=== PATIENT | male | born 1965 | race African-American/Black ===

== ENCOUNTER 2017-10-10 06:49 | Inpatient (IN) | payer OTHER ==
[~2017-10-10] VITALS: Ht 188 cm; Wt 107.3 kg
--- NOTE | 2017-10-10 07:41 | ED CARDIAC/CP/PALPITATIONS ---
History of Present Illness General Chief Complaint: Chest Pain Stated Complaint: CHEST PAIN Source: patient Exam Limitations: no limitations Vital Signs & Intake/Output Vital Signs & Intake/Output Vital Signs Date Time Temp Pulse Resp B/P B/P Pulse O2 O2 Flow FiO2 Mean Ox Delivery Rate 10/10 0845 97.8 57 20 122/75 99 Room Air 10/10 0827 98.0 10/10 0813 58 134/81 10/10 0800 98.0 10/10 0658 98.0 66 20 143/79 99 Allergies Coded Allergies: No Known Allergies (10/10/17) Reconcile Medications Aspirin (Ecotrin*) 81 MG TABLET.DR 1 TAB PO DAILY HEART HEALTH (Reported) Cholecalciferol (Vitamin D3) 1,000 UNIT TABLET 1 TAB PO DAILY VITAMIN SUPPORT (Reported) Verapamil HCl (Verapamil ER) 180 MG TABLET.ER 1 TAB PO DAILY HEART (Reported) Triage Note: PER PT 30 MINUTES OF MIDSTERNAL CP NO ASSOC SOB SL PAIN TO NECK HX OF HTN6/10 ON SCALE Triage Nurses Notes Reviewed? yes HPI: Patient was sitting in his truck about to go to work when he had a sudden onset of substernal chest pain. Patient states that it feels like he got punched in the chest and kind has had residual ache. Patient states that the pain transiently radiated up to his neck but then that went away after a few seconds over the chest pain continued. He did get very sweaty and nauseous and both of those have resolved. The chest pain is getting better but it is not gone entirely. Patient has never had anything like this before. Patient does have a significant family history of cardiac disease at an early age. His father had his first heart attack at the age of 42 and the patient's brother as well as his nephew who are both had heart attacks. At its worst the pain was a 7 out of 10 and is currently a 4 out of 10. There are no aggravating or mitigating factors. Past History Travel History Traveled to [place] past 21 day No Medical History Any Pertinent Medical History? see below for history Neurological: NONE EENT: NONE Cardiovascular: hypertension Respiratory: NONE Gastrointestinal: NONE Hepatic: NONE Renal: NONE Musculoskeletal: NONE Psychiatric: NONE Endocrine: NONE Surgical History Surgical History: non-contributory Psychosocial History What is your primary language Thai Tobacco Use: Never used ETOH Use: occasional use Illicit Drug Use: denies illicit drug use Family History Hx Contributory? No Review of Systems Review of Systems Constitutional: Reports: no symptoms. EENTM: Reports: no symptoms. Respiratory: Reports: see HPI, short of breath. Cardiovascular: Reports: see HPI, chest pain. GI: Reports: see HPI, nausea. Genitourinary: Reports: no symptoms. Musculoskeletal: Reports: no symptoms. Skin: Reports: no symptoms. Neurological/Psychological: Reports: no symptoms. Hematologic/Endocrine: Reports: no symptoms. Immunologic/Allergic: Reports: no symptoms. All Other Systems: Reviewed and Negative Physical Exam Physical Exam General Appearance: well developed/nourished, alert, awake, anxious Head: atraumatic, normal appearance Eyes: Bilateral: PERRL, EOMI. Ears, Nose, Throat: normal pharynx, normal ENT inspection, hearing grossly normal Neck: normal inspection, supple, full range of motion Respiratory: normal breath sounds, chest non-tender, no respiratory distress, lungs clear Cardiovascular: regular rate/rhythm, normal peripheral pulses Gastrointestinal: normal bowel sounds, soft, non-tender, no organomegaly Back: normal inspection, normal range of motion Extremities: normal inspection, normal capillary refill, normal range of motion, no edema Neurologic/Psych: no motor/sensory deficits, awake, alert, oriented x 3, normal gait, normal mood/affect Skin: intact, normal color, warm/dry Lymphatic: no anterior cervical nasrin Core Measures ACS in differential dx? Yes CVA/TIA Diagnosis No Sepsis Present: No Sepsis Focused Exam Completed? No Progress Differential Diagnosis: AMI, cholecystitis, costochondritis, musculoskeletal pain, myocarditis, pancreatitis, pericarditis, pneumonia, pneumothorax, pulmonary embolism, unstable angina Plan of Care: Orders Procedure Date/time Status Heart Healthy Diet 10/10 L Active ED Holding Orders 10/10 0834 Active Admit to inpatient 10/10 0834 Active Vital Signs 10/10 0834 Active Code Status 10/10 0834 Active TROPONIN LEVEL 10/10 0657 Complete LIPASE 10/10 0657 Complete HEPATIC FUNCTION PANEL 10/10 0657 Complete D-DIMER 10/10 0657 Complete CBC WITHOUT DIFFERENTIAL 10/10 0657 Complete BASIC METABOLIC PANEL 10/10 0657 Complete AMYLASE 10/10 0657 Complete EKG 10/10 0650 Active Laboratory Tests 10/10/17 0711: Anion Gap 10, Estimated GFR > 60, BUN/Creatinine Ratio 19.1, Glucose 102 H, Calcium 9.1, Total Bilirubin 0.2, Direct Bilirubin 0.2, AST 21, ALT 25, Alkaline Phosphatase 64, Troponin I < 0.01, Total Protein 6.4, Albumin 3.5, Amylase 61, Lipase 114, D-Dimer High Sensitivty < 200, CBC w Diff NO MAN DIFF REQ, RBC 4.84, MCV 82.6, MCH 27.9, MCHC 33.8, RDW 14.8 H, MPV 8.2, Gran % 54.6, Lymphocytes % 32.3, Monocytes % 10.0 H, Eosinophils % 2.6, Basophils % 0.5, Absolute Granulocytes 3.0, Absolute Lymphocytes 1.8, Absolute Monocytes 0.6, Absolute Eosinophils 0.1, Absolute Basophils 0 Diagnostic Imaging: Viewed by Me: Radiology Read. Discussed w/RAD: Radiology Read. CXR Impression: PATIENT: JENNIE BLAS PRESENT AGE: 52 PATIENT ACCOUNT NO: [id number] : 67 LOCATION: [facility] ORDERING PHYSICIAN: Andrwe Farfan MD SERVICE DATE: 10/10/17 EXAM TYPE: RAD - XRY- PORTABLE CHEST XRAY EXAMINATION: XR PORTABLE CHEST CLINICAL INFORMATION: Chest pain. COMPARISON: No relevant prior imaging. TECHNIQUE: Portable frontal view of the chest was obtained. FINDINGS: Lungs are clear and well expanded. No focal consolidative disease, pleural effusion, or pneumothorax. The cardiac silhouette and upper mediastinal contours are normal. No acute osseous finding. IMPRESSION: Unremarkable chest radiograph. No consolidative disease or effusion. DICTATED BY : Sunday Riggs MD DATE/TIME DICTATED:10/10/17747 FURNACE FILLER: MIKKI DATE/TIME TRANSCRIBED:10/10/17747 CONFIDENTIAL, DO NOT COPY WITHOUT APPROPRIATE AUTHORIZATION. <Electronically signed in Other Vendor System> SIGNED BY: Sunday Riggs MD 10/10/17 9142 Initial ED EKG: SR WITH NSSTT CHANGES,NO OLD TO COMPARE Comments: PAIN RELIEVED AFTER SECOND NITRO Discussed with Dr. Wiggins, given the patient's family history and relief with nitroglycerin it is advised that the patient stay in the hospital for further cardiology workup. Departure Departure Disposition: STILL A PATIENT Condition: Stable Clinical Impression Primary Impression: ACS (acute coronary syndrome) Referrals: Unknown (PCP/Family) Departure Forms: Customer Survey General Discharge Information Admission Note Spoke With: Jag Patel MD Documentation of Exam: Documentation of any treatments & extenuating circumstances including Concerns Regarding Discharge (functional status, medication knowledge or non-compliance, living conditions, etc.) that warrant an admission rather than observation: [ ADMIT TO TELE, SERIAL ENZYMES, CARDIOLOGY CONSULTATION, STESS TEST] Critical Care Note Critical Care Note Critical Care Time: non-applicable
[2017-10-10 07:46] LABS: ABSOLUTE BASOPHIL COUNT 0 /CUMM (0.0-0.2); ABSOLUTE EOSINOPHIL COUNT 0.1 /CUMM (0.0-0.7); ABSOLUTE LYMPH COUNT 1.8 /CUMM (1.2-3.4); ABSOLUTE MONOCYTE COUNT 0.6 /CUMM (0.10-0.60); BASOPHIL % 0.5 % (0.0-2.0); EOSINOPHIL % 2.6 % (0-5); GRANULOCYTE % 54.6 % (42.2-75.2); MEAN CORPUSCULAR HGB 27.9 PG (27.0-31.0); MEAN CORPUSCULAR HGB CONC 33.8 G/DL (33.0-37.0); MEAN CORPUSCULAR VOLUME 82.6 FL (80.0-94.0); MEAN PLATELET VOLUME 8.2 FL (7.4-10.4); PLATELET COUNT 249 /CUMM (130-400); RBC DISTRIBUTION WIDTH 14.8 % (11.5-14.5); RED BLOOD CELL CT 4.84 /CUMM (4.70-6.10); WHITE BLOOD CELL COUNT 5.5 /CUMM (4.8-10.8)
--- NOTE | 2017-10-10 07:52 | RADIOLOGY REPORT ---
EXAMINATION: XR PORTABLE CHEST CLINICAL INFORMATION: Chest pain. COMPARISON: No relevant prior imaging. TECHNIQUE: Portable frontal view of the chest was obtained. FINDINGS: Lungs are clear and well expanded. No focal consolidative disease, pleural effusion, or pneumothorax. The cardiac silhouette and upper mediastinal contours are normal. No acute osseous finding. IMPRESSION: Unremarkable chest radiograph. No consolidative disease or effusion.
[2017-10-10] MEDS ORDERED: VERAPAMIL ER180 M1 PO (08:05)
[2017-10-10] MEDS ORDERED: VITAMIN D31000 UNI2 PO (08:06)
[2017-10-10] MEDS ORDERED: ASPIRIN EC81 M1 PO (08:06)
--- NOTE | 2017-10-10 09:19 | History & Physical ---
Lizz Vasquez MD 10/10/17 0919: General Information and HPI MD Statement: I have seen and personally examined JENNIE BLAS and documented this H&P. The patient is a 52 year old M who presented with a patient stated chief complaint of [CHEST PAIN]. Source of Information: patient Exam Limitations: no limitations History of Present Illness: Patient is a 52 YO M with PMH significant for HTN, headache presented to [place] after experiencing chest pain at rest today morning. Chest pain is stabbing in nature, substernal radiating to neck, with nausea and diaphoresis. Pain relieved with oral nitroglycerine. He denies any precipitating events prior to this episode, usually functional at baseline. 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 He reports headache every other day with dizziness. Never checks his blood pressure at home, unsure how well it is controlled. Otherwise negative review of systems. Admitted with chest pain last yr, had a normal stress test during that admission. PMH HTN - 2yrs, on verapamil Headache NKDA Meds Verapamil 180mg daily aspirin 81mg daily Family history Mother - stroke father - MT, PPM started around 50's Brother - MT in 30's Surgical None PCP - Dr.Charles araujo -- [facility] Allergies/Medications Allergies: Coded Allergies: No Known Allergies (10/10/17) Home Med list Aspirin (Ecotrin*) 81 MG TABLET.DR 1 TAB PO DAILY HEART HEALTH (Reported) Cholecalciferol (Vitamin D3) 1,000 UNIT TABLET 1 TAB PO DAILY VITAMIN SUPPORT (Reported) Verapamil HCl (Verapamil ER) 180 MG TABLET.ER 1 TAB PO DAILY HEART (Reported) Compliance With Home Meds: GOOD Past History Travel History Traveled to [place] past 21 day No Medical History Neurological: NONE EENT: NONE Cardiovascular: hypertension Respiratory: NONE Gastrointestinal: NONE Hepatic: NONE Renal: NONE Musculoskeletal: NONE Psychiatric: NONE Endocrine: NONE Surgical History Surgical History: non-contributory Past Family/Social History Family History Relations & Conditions if any MOTHER FH: stroke FATHER FH: myocardial infarction, Onset: 50-60. Pacemaker BROTHER FH: myocardial infarction, Onset: 30-40. Psychosocial History Where do you live? Home Who Do You Live With? none Services at Home: None Smoking Status: Never Smoked ETOH Use: occasional use Illicit Drug Use: denies illicit drug use Functional Ability ADLs Independent: dressing, eating, toileting, bathing. Ambulation: independent IADLs Independent: shopping, housework, finances, food prep, telephone, transportation , medication admin. Review of Systems Review of Systems Constitutional: Reports: see HPI. Exam & Diagnostic Data Last 24 Hrs of Vital Signs/I&O Vital Signs Date Time Temp Pulse Resp B/P B/P Pulse O2 O2 Flow FiO2 Mean Ox Delivery Rate 10/10 0845 97.8 57 20 122/75 99 Room Air 10/10 0827 98.0 10/10 0813 58 134/81 10/10 08 98.0 10/10 0658 98.0 66 20 143/79 99 Intake & Output 10/10 1600 10/10 0800 10/10 0000 Intake Total 0 Output Total Balance 0 Intake, Oral 0 Patient 104.326 kg Weight Physical Exam General Appearance Alert, Oriented X3, Cooperative Skin No Rashes, No Breakdown Skin Temp/Moisture Exam: Warm/Dry Sepsis Skin Exam (color): Normal for Ethnicity HEENT Atraumatic, PERRLA, EOMI Neck Supple, No JVD Cardiovascular Normal S1, Normal S2 Lungs Clear to Auscultation, Normal Air Movement Abdomen Normal Bowel Sounds, Soft, No Tenderness Neurological Strength at 5/5 X4 Ext, Normal Tone, Sensation Intact Extremities No Clubbing, No Cyanosis, No Edema Vascular Normal Pulses Last 24 Hrs of Labs/Pranav: Laboratory Tests 10/10/17 0711: Anion Gap 10, Estimated GFR > 60, BUN/Creatinine Ratio 19.1, Glucose 102 H, Calcium 9.1, Total Bilirubin 0.2, Direct Bilirubin 0.2, AST 21, ALT 25, Alkaline Phosphatase 64, Troponin I < 0.01, Total Protein 6.4, Albumin 3.5, Amylase 61, Lipase 114, D-Dimer High Sensitivty < 200, CBC w Diff NO MAN DIFF REQ, RBC 4.84, MCV 82.6, MCH 27.9, MCHC 33.8, RDW 14.8 H, MPV 8.2, Gran % 54.6, Lymphocytes % 32.3, Monocytes % 10.0 H, Eosinophils % 2.6, Basophils % 0.5, Absolute Granulocytes 3.0, Absolute Lymphocytes 1.8, Absolute Monocytes 0.6, Absolute Eosinophils 0.1, Absolute Basophils 0 Diagnostic Data EKG Results NSR with nonspecific EKG changes in II, III, aVF, V5, V6 Assessment/Plan Assessment: Patient is a 52 YO male with HTN, previous chest apain with normal stress test a yr ago presented with stabbing substernal chest pain with nausea, diaphoresis at rest. He had strong family history of MT in father, brother at younger age (<55yr), no smoking/alcohol. VS at presentation are significant for HR 50-60, BP 140/75mmHg, saturating on RA. Physical exam obese, otherwise unremarkable. Labs are unremarkable (mild elevation in sugars). cxr unremarkable. Differentials Cardiac chest pain - Unstable angina vs ACS No history of GERD/recent viral infection Problem list 1. Chest pain - ischemic - rule out MT 2. HTN 3. Headache Plan Admit to telemetry floor Chest pain H/o HTN on verapamil. strong family history of MT in 50's, bother in 30's. previous similar episode with normal stress test. * aspirin 325mg in ER, continue aspirin 81mg daily * Atrovastatin 40mg, continue verapamil * echocardiogram * Serial ekg and trop - if elevated consider iv heparin * consulted * Will try to obtain records HTN Needs changes in regimen, on verapamil. we will continue for now Headache Appears cluster headache. Reports every other day, lasts only few seconds. Associated with dizziness. On verapamil apparently. DVT prophylaxis SC heparin Code status Full code As Ranked By This Provider Problem List: 1. ACS (acute coronary syndrome) 2. Chest pain Core Measures/Misc (01/09) Acute Coronary Syndrome ACS Diagnosis: No Congestive Heart Failure Congestive Heart Failure Diagnosis No Cerebrovascular Accident CVA/TIA Diagnosis: No VTE (View Protocol) VTE Risk Factors Acute Medical Illness No Mechanical VTE Prophylaxis d/t N/A MechProphylax Ordered No VTE Pharm Prophylaxis d/t NA PharmProphylax ordered Sepsis (View protocol) Sepsis Present: No If YES complete Sepsis Event Note If YES complete Sepsis Event Note Resident Review Statement Resident Statement: examined this patient, discussed with wedding planning internship, agreed with wedding planning internship, discussed with family, reviewed EMR data (avail), discussed with nursing , discussed with case mgmt, reviewed images, amended to note Other Findings: As above Suleiman Jimenez 10/10/17 1031: Core Measures/Misc (01/09) Sepsis (View protocol) If YES complete Sepsis Event Note If YES complete Sepsis Event Note Attending MD Review Statement Attending Statement Attending MD Statement: examined this patient, discuss w/resident/PA/CAT OPERATOR, agreed w/resident/PA/CAT OPERATOR, discussed with family, reviewed EMR data (avail), discussed with nursing, discussed with case mgmt, reviewed images, amended to note Attending Assessment/Plan: Patient here with chest pain syndrome to telemetry. Cardiology consult. serial cardiac enzymes and ekgs. ECHO as per cardiology. Hypertension and headaches controlled on verapamil. Cont current regimen.
--- NOTE | 2017-10-10 11:29 | ECHOCARDIOGRAM REPORT ---
JENNIE BLAS Age: 52 : 1965 Gender: M Exam Date: 10/10/2017 10:08 Exam Location: ER Ht (in): 74 Wt (lb): 230 BSA: 2.35 BP: 122 / 75 Ordering Physician: Lizz Vasquez MD Referring Physician: Lizz Vasquez MD Technologist: Kamron Jeter [facility] Room Number: 7 Indications: LV FUNCTION AFTER ACS Rhythm: Sinus Technical Quality: good FINDINGS Left Ventricle Normal left ventricular size, wall thickness and systolic function with no obvious regional wall motion abnormalities. Normal left ventricular diastolic filling pattern for age. The ejection fraction is visually estimated at 60%. Right Ventricle The right ventricle is normal in size and function. Right Atrium The right atrium is normal in size. Left Atrium The left atrium is normal in size. The interatrial septum is intact. Mitral Valve The mitral valve is normal in structure and function. There is trace mitral regurgitation. Aortic Valve Structurally normal aortic valve without significant sclerosis or stenosis. There is no aortic regurgitation. Tricuspid Valve The tricuspid valve is normal in structure and function. There is no tricuspid regurgitation. Pulmonic Valve Structurally normal pulmonic valve. There is no pulmonic regurgitation. Pericardium Normal pericardium without effusion. No pleural effusion. Great Vessels Normal aortic root dimension. The aortic arch and great vessels are well seen and are normal. CONCLUSIONS 1. Normal EF of 60%. 2. Trace mitral regurgitation. Wood Wiggins M.D. (Electronically Signed) Final Date: 10 October 2017 11:29 MEASUREMENTS (Male / Female) Normal Values 2D ECHO LV Diastolic Diameter PLAX 5.6 cm 4.2 - 5.9 / 3.9 - 5.3 cm LV Systolic Diameter PLAX 3.1 cm 2.1 - 4.0 cm LV Fractional Shortening PLAX 44.6 % 25 - 46 % LV Ejection Fraction 2D Teich 75.3 % IVS Diastolic Thickness 0.8 cm LVPW Diastolic Thickness 0.9 cm LV Relative Wall Thickness 0.3 RV Internal Dim ED PLAX 2.9 cm 1.9 - 3.8 cm LVOT Diameter 2.1 cm Aortic Root Diameter 3.1 cm LA Systolic Diameter LX 3.2 cm 3.0 - 4.0 / 2.7 - 3.8 cm LA Volume 51.0 cm 18 - 58 / 22 - 52 cm Ascending Aorta Diameter 3.2 cm DOPPLER AV Peak Velocity 121.0 cm/s AV Peak Gradient 5.9 mmHg AV Mean Velocity 88.6 cm/s AV Mean Gradient 3.0 mmHg AV Velocity Time Integral 31.8 cm LVOT Peak Velocity 91.0 cm/s LVOT Peak Gradient 3.3 mmHg LVOT Mean Velocity 53.8 cm/s LVOT Mean Gradient 1.0 mmHg LVOT Velocity Time Integral 19.5 cm LVOT Stroke Volume 67.5 cm AV Area Cont Eq vti 2.1 cm AV Area Cont Eq pk 2.6 cm MV Peak Velocity 88.2 cm/s MV Peak Gradient 3.1 mmHg MV Mean Velocity 40.5 cm/s MV Mean Gradient 1.0 mmHg Mitral E Point Velocity 71.1 cm/s Mitral A Point Velocity 37.5 cm/s Mitral E to A Ratio 1.9 MV PHT Velocity 102.0 cm/s MV Deceleration [place] 444.0 cm/s MV Pressure Half Time 68.9 ms MV Area PHT 3.2 cm MV Deceleration Time 232.0 ms PV Peak Velocity 91.0 cm/s PV Peak Gradient 3.3 mmHg PV Mean Velocity 62.7 cm/s PV Mean Gradient 2.0 mmHg PV Velocity Time Integral 23.6 cm LV E' Lateral Velocity 13.7 cm/s Mitral E to LV E' Lateral Ratio 5.2 LV E' Septal Velocity 10.6 cm/s Mitral E to LV E' Septal Ratio 6.7
[2017-10-10 12:55] VITALS: BP 138/82
[2017-10-10 15:22] VITALS: BP 122/86
[2017-10-10 16:22] LABS: PT 11.4 SEC (9.4-12.5)
--- NOTE | 2017-10-10 17:06 | Cons- Cardiology ---
General Information and HPI Consulting Request Date of Consult: 10/10/17 Requested By: Suleiman Jimenez MD History of Present Illness: Mr Adams is a 52 year old male with history of hypertension who presented to the ER for evaluation of chest discomfort. At his baseline, he is mild to moderately active but does not engage in vigorous exercise. This morning, prior to beginning to work, he suddenly noted the onset of a moderate, chest pressure radiating toward his left neck that was exacerbated by physical exertion. It was relieved about ten minutes later in the ER after he received two sublingual NTG. The discomfort was associated with nausea and diaphoresis. He also had some transient lightheadedness but no palpitations. His breathing also remained comfortable. It should be noted that this patient also had an episode of chest discomfort about a year ago while living in [place] and a subsequent stress test was negative for ischemia at that time. Allergies/Medications Allergies: Coded Allergies: No Known Allergies (10/10/17) Home Med List: Aspirin (Ecotrin*) 81 MG TABLET.DR 1 TAB PO DAILY HEART HEALTH (Reported) Cholecalciferol (Vitamin D3) 1,000 UNIT TABLET 1 TAB PO DAILY VITAMIN SUPPORT (Reported) Verapamil HCl (Verapamil ER) 180 MG TABLET.ER 1 TAB PO DAILY HEART (Reported) Review of Systems Review of Systems: headaches Past History Travel History Traveled to [place] past 21 day No Medical History Blood Transfusion Hx: No Neurological: NONE EENT: NONE Cardiovascular: hypertension Respiratory: NONE Gastrointestinal: NONE Hepatic: NONE Renal: NONE Musculoskeletal: NONE Psychiatric: NONE Endocrine: NONE Blood Disorders: NONE Cancer(s): NONE LENGTH CONTROL TESTER/Reproductive: NONE Other Medical Hx: headaches Surgical History Surgical History: non-contributory Family History Relations & Conditions If Any: MOTHER FH: stroke FATHER FH: myocardial infarction, Onset: 50-60. Pacemaker BROTHER FH: myocardial infarction, Onset: 30-40. Psychosocial History Where Do You Live? Home Who Do You Live With? none Services at Home: None Smoking Status: Never Smoked ETOH Use: occasional use Illicit Drug Use: denies illicit drug use Functional Ability ADLs Independent: dressing, eating, toileting, bathing. Ambulation: independent IADLs Independent: shopping, housework, finances, food prep, telephone, transportation , medication admin. Exam & Diagnostic Data Vital Signs and I&O Vital Signs Date Time Temp Pulse Resp B/P B/P Pulse O2 O2 Flow FiO2 Mean Ox Delivery Rate 10/10 1522 97.9 52 18 122/86 97 Room Air 10/10 1255 97.9 49 18 138/82 99 Room Air 10/10 1147 97.8 52 18 121/72 10/10 1057 97.7 52 18 121/72 98 Room Air 10/10 0845 97.8 57 20 122/75 99 Room Air 10/10 0827 98.0 10/10 0813 58 134/81 10/10 0800 98.0 10/10 0658 98.0 66 20 143/79 99 Intake & Output 10/10 1600 10/10 0800 10/10 0000 10/09 1600 10/09 0800 10/09 0000 Intake Total 0 Output Total 500 Balance -500 0 Intake, Oral 0 Number 0 Bowel Movements Output, Urine 500 Patient 260 lb 230 lb Weight Weight Reported by Patient Measurement Method Physical Exam: General: WD/WN male in NAD; alert and oriented x 3 HEENT: NC/AT, PERRL, EOMI Neck: no JVD, no carotid bruit Heart: RRR w/o murmur Lungs: clear bilaterally Abdomen: soft, NT, +ve bowel sounds Extremities: no edema Diagnostic Data EKG Results sinus rhythm Assessment/Plan Assessment/Plan * This patient has a very disconcerting family history of premature coronary artery disease in both his brother and father. This is in addition to hypertension. The chest discomfort that Mr. Adams describes today does sound reasonable for a cardiac pain in that it radiates toward his neck, was increased by exertion prior to relief by NTG. It was also accompanied by typical symptoms of increased sympathetic response. We will treat this as unstable angina and will begin aspirin 325mg daily, Plavix 75mg daily after a 300mg loading dose and IV heparin. Begin NTG paste if there is any recurrent chest pain. Since his heart rate and bleed pressure are both well controlled on his current dose of Verapamil, I would continue this. Begin supplemental O2 at 2L by NC. * Agree with obtaining an echocardiogram. * Follow for three sets of cardiac enzymes on telemetry. * Will plan on risk stratification with a treadmill nuclear stress test tomorrow. Consult Acknowledgment - Thank you for your consult request.
[2017-10-10 22:19] VITALS: BP 150/78
[2017-10-10 23:30] LABS: PTT 40 SEC (25-37)
--- NOTE | 2017-10-11 07:01 | PN- Housestaff ---
Mike BASS,[facility] 10/11/17 0701: Subjective Follow-up For: Chest Pain Subjective: Mr. Adams was seen and examined this morning. He is resting comfortably in bed. Denies any issues overnight. States he was able to get some rest. States that he feels much better today compared to at the time of admission. 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 Originally from [place]. Overnight no issues were endorsed. He is currently nothing by mouth and is awaiting stress test scheduled for later today. Denies any pain, dyspnea, fever, chills, nausea, vomiting. He denies any headaches. Review of Systems Constitutional: Reports: see HPI. Objective Last 24 Hrs of Vital Signs/I&O Vital Signs Date Time Temp Pulse Resp B/P B/P Pulse O2 O2 Flow FiO2 Mean Ox Delivery Rate 10/11 0705 97.7 60 18 118/80 98 Room Air 10/10 2219 97.8 48 18 150/78 98 Room Air 10/10 1522 97.9 52 18 122/86 97 Room Air 10/10 1255 97.9 49 18 138/82 99 Room Air 10/10 1147 97.8 52 18 121/72 06 1057 97.7 52 18 121/72 98 Room Air 10/10 0845 97.8 57 20 122/75 99 Room Air Intake & Output 10/11 1600 10/11 0800 10/11 0000 Intake Total 274 1080 Output Total Balance 274 1080 Intake, IV 224 Intake, Oral 50 1080 Number 1 Bowel Movements Patient 107.303 kg Weight Weight Bed scale Measurement Method Physical Exam General Appearance: Alert, Oriented X3, Cooperative HEENT: Mucous Membr. moist/pink Cardiovascular: Regular Rate, Normal S1, Normal S2 Lungs: Clear to Auscultation Abdomen: Normal Bowel Sounds, Soft, No Tenderness Neurological: Strength at 5/5 X4 Ext Extremities: No Edema, Normal Pulses Current Medications: Current Medications Sig/Monica Start time Last Medication Dose Route Stop Time Status Admin Aspirin Buffered 81 MG DAILY 10/11 0900 DC PO Aspirin Buffered 325 MG DAILY 10/10 1830 AC PO Atorvastatin Calcium 40 MG 1700 10/10 1700 AC 10/10 PO 1621 Cholecalciferol 1,000 IU DAILY 10/10 0925 AC 10/10 PO 1147 Clopidogrel Bisulfate 75 MG DAILY 10/11 0900 AC PO Clopidogrel Bisulfate 300 MG ONCE ONE 10/10 1545 DC 10/10 PO 10/10 1546 1621 Heparin Sodium 6,400 UNIT ONCE ONE 10/11 0015 DC 10/11 (Porcine) IV 10/11 0016 0013 Heparin Sodium 25,000 UNIT Q24H 10/10 1545 AC 10/10 (Porcine) IV 1659 Sodium Chloride 500 ML Heparin Sodium 5,000 UNIT Q8 10/10 1400 DC (Porcine) SC Nitroglycerin 0.5 GM Q6P PRN 10/10 1030 AC TOP Verapamil HCl 180 MG DAILY 10/10 0925 AC PO Last 24 Hrs of Lab/Pranav Results Last 24 Hrs of Labs/Mics: Laboratory Tests 10/11/17 0606: Anion Gap 9, Estimated GFR > 60, BUN/Creatinine Ratio 16.0, Magnesium 1.8, Triglycerides 52, Cholesterol 130, LDL Cholesterol, Calc 68, HDL Cholesterol 52, Cholesterol/HDL Ratio 3, APTT Pending, CBC w Diff NO MAN DIFF REQ, RBC 5.15, MCV 84.0, MCH 27.5, MCHC 32.7 L, RDW 14.8 H, MPV 8.2, Gran % 54.5, Lymphocytes % 32.9, Monocytes % 8.5, Eosinophils % 3.3, Basophils % 0.8, Absolute Granulocytes 2.9, Absolute Lymphocytes 1.7, Absolute Monocytes 0.4, Absolute Eosinophils 0.2, Absolute Basophils 0 10/10/17 2245: APTT 40 H 10/10/17 1925: Troponin I < 0.01 10/10/17 1300: Urine Color YEL, Urine Clarity CLEAR, Urine pH 6.5, Ur Specific Tina 1.025, Urine Protein NEG, Urine Ketones NEG, Urine Nitrite NEG, Urine Bilirubin NEG, Urine Urobilinogen 0.2, Ur Leukocyte Esterase NEG, Ur Microscopic EXAM NOT REQUIRED, Urine Hemoglobin NEG, Urine Glucose NEG 10/10/17 1251: Troponin I < 0.01 Orders ECHO Findings: SERVICE DATE: 10/10/17 EXAM TYPE: CARD - ECHOCARDIOGRAM JENNIE ADAMS Age: 52 : 1965 Gender: M Exam Date: 10/10/2017 10:08 Exam Location: ER Ht (in): 74 Wt (lb): 230 BSA: 2.35 BP: 122 / 75 Ordering Physician: Lizz Vasquez MD Referring Physician: Lizz Vasquez MD Technologist: Kamron Jeter [facility] Room Number: 7 Indications: LV FUNCTION AFTER ACS Rhythm: Sinus Technical Quality: good FINDINGS Left Ventricle Normal left ventricular size, wall thickness and systolic function with no obvious regional wall motion abnormalities. Normal left ventricular diastolic filling pattern for age. The ejection fraction is visually estimated at 60%. Right Ventricle The right ventricle is normal in size and function. Right Atrium The right atrium is normal in size. Left Atrium The left atrium is normal in size. The interatrial septum is intact. Mitral Valve The mitral valve is normal in structure and function. There is trace mitral regurgitation. Aortic Valve Structurally normal aortic valve without significant sclerosis or stenosis. There is no aortic regurgitation. Tricuspid Valve The tricuspid valve is normal in structure and function. There is no tricuspid regurgitation. Pulmonic Valve Structurally normal pulmonic valve. There is no pulmonic regurgitation. Pericardium Normal pericardium without effusion. No pleural effusion. Great Vessels Normal aortic root dimension. The aortic arch and great vessels are well seen and are normal. CONCLUSIONS 1. Normal EF of 60%. 2. Trace mitral regurgitation. Wood Wiggins M.D. Assessment/Plan Assessment: Mr Adams is a 52 YO male with HTN, previous chest pain with normal stress test a yr ago presented with stabbing substernal chest pain with nausea, diaphoresis at rest. He has a strong family history of CT in father, brother at younger age (<55yr), no smoking/alcohol. VS at presentation are significant for HR 50-60, BP 140/75mmHg, saturating on RA. Chest pain on admission was relieved with NTG. Currently admitted on the telemetry service and had no issues on the monitoring engineer overnight. Differentials Cardiac chest pain - Unstable angina vs ACS No history of GERD/recent viral infection Problem list 1. Chest pain - likely unstable angina 2. HTN 3. Headache Plan Chest pain H/o HTN on verapamil. strong family history of CT in 50's, bother in 30's. previous similar episode with normal stress test. * aspirin 325mg * Atrovastatin 40mg, * Plavix 75mg daily * Continue IV heparin. * continue verapamil * echocardiogram, results attached. HTN Needs changes in regimen, on verapamil. we will continue for now Headache Query Cluster headache. Symptoms well controlled on verapamil. DVT prophylaxis SC heparin Code status Full code Problem List: 1. Chest pain Pain Ratin Pain Location: No Pain Pain Goal: Remain pain free Pain Plan: Acetaminophen and Morphine PRN Tomorrow's Labs & Rationales: No Labs needed, pending discharge. Suleiman Jimenez 10/11/17 1051: Attending MD Review Statement Attending Statement Attending MD Statement: examined this patient, discuss w/resident/PA/SECURITY SYSTEMS INTEGRATOR, agreed w/resident/PA/SECURITY SYSTEMS INTEGRATOR, discussed with family, reviewed EMR data (avail), discussed with nursing, discussed with case mgmt, reviewed images, amended to note Attending Assessment/Plan: Patinet with chest pain syndrome. Cardiac enzymes negative. Plan for stress test today. If stress test negative he can ne discharged to home with outpatient follow up with PCP in 1-2 weeks of discharge.
[2017-10-11 07:05] VITALS: BP 118/80
[2017-10-11 07:47] LABS: ABSOLUTE BASOPHIL COUNT 0 /CUMM (0.0-0.2); ABSOLUTE EOSINOPHIL COUNT 0.2 /CUMM (0.0-0.7); ABSOLUTE GRANULOCYTE CT 2.9 /CUMM (1.4-6.5); ABSOLUTE LYMPH COUNT 1.7 /CUMM (1.2-3.4); ABSOLUTE MONOCYTE COUNT 0.4 /CUMM (0.10-0.60); BASOPHIL % 0.8 % (0.0-2.0); EOSINOPHIL % 3.3 % (0-5); GRANULOCYTE % 54.5 % (42.2-75.2); HEMATOCRIT 43.3 % (42-52); MEAN CORPUSCULAR HGB 27.5 PG (27.0-31.0); MEAN CORPUSCULAR HGB CONC 32.7 G/DL (33.0-37.0); MEAN PLATELET VOLUME 8.2 FL (7.4-10.4); PLATELET COUNT 252 /CUMM (130-400); RBC DISTRIBUTION WIDTH 14.8 % (11.5-14.5); RED BLOOD CELL CT 5.15 /CUMM (4.70-6.10); WHITE BLOOD CELL COUNT 5.2 /CUMM (4.8-10.8)
[2017-10-11 09:02] LABS: PTT > 120 SEC (25-37)
[2017-10-11 14:48] VITALS: BP 130/80
--- NOTE | 2017-10-11 14:49 | Patient Discharge Instructions ---
Discharge Instructions General Discharge Information You were seen/treated for: Chest pain Special Instructions: Please follow up with the PCP within 7 days we have provided you with a referral. Follow up with the sagger soak within 1 week with provided you referral. Acute Coronary Syndrome Inclusion Criteria At DC or during hospital stay patient has or had the following: ACS DIAGNOSIS No Discharge Core Measures Meds if any: Prescribed or Continued at Discharge Meds if any: NOT Prescribed or Continued at Discharge Congestive Heart Failure Inclusion Criteria At DC or during hospital stay patient has or had the following: CHF DIAGNOSIS No Discharge Core Measures Meds if any: Prescribed or Continued at Discharge Meds if any: NOT Prescribed or Continued at Discharge Cerebrovascular accident Inclusion Criteria At DC or during hospital stay patient has or had the following: CVA/TIA Diagnosis No Discharge Core Measures Meds if any: Prescribed or Continued at Discharge Meds if any: NOT Prescribed or Continued at Discharge Venous thromboembolism Inclusion Criteria VTE Diagnosis No VTE Type NONE VTE Confirmed by (Test) NONE Discharge Core Measures - Per Current guidelines, there needs to be overlap - treatment for the first 5 days of Warfarin therapy. - If discharged on Warfarin prior to 5 days of - overlap therapy, the patient will need to be - assessed for post discharge needs including - *Post discharge parental anticoagulation - *Warfarin and/or parental anticoagulation education - *Follow up date to check INR post discharge At least 5 days overlap therapy as Inpatient No Meds if any: Prescribed or Continued at Discharge Note: Overlap Therapy is Warfarin and Anticoagulant Meds if any: NOT Prescribed or Continued at Discharge
[2017-10-11] MEDS ORDERED: ATORVASTATIN CA40 M1 PO ×2 (15:21→18:33)
[2017-10-11] MEDS ORDERED: PLAVIX75 M1 PO ×2 (15:21→18:33)
[2017-10-11] MEDS ORDERED: ASPIRIN EC325 M2 PO (15:21)
--- NOTE | 2017-10-11 16:01 | NUCLEAR MEDICINE REPORT ---
EXERCISE STRESS AND RESTING SPECT MYOCARDIAL PERFUSION IMAGING STUDY WITH GATED SPECT IMAGES: CLINICAL INDICATION: Atypical chest pain. PROCEDURE: Regional myocardial perfusion was assessed using a 1 day protocol. Stress images were obtained on 10/11/2017 following the intravenous administration of 26.5 mCi Tc 99m Myoview. Stress was performed using the standard Chay protocol, with the patient reaching a peak heart rate of 88% maximal predicted heart rate. Rest images were obtained 10/11/2017 following the intravenous administration of 41.4 mCi Technetium 99m Myoview. Single photon emission tomographic (SPECT) images were obtained. SPECT images were acquired in a 64 x 64 matrix of 64 projections over 180 degrees. These were reconstructed into standard short axis, horizontal and vertical long axis cardiac projections. FINDINGS: The post stress images demonstrate the left ventricular chamber to be normal in size. There is homogeneous distribution of activity in the left ventricular myocardium with no regions of abnormally decreased activity noted. The resting images also demonstrate homogeneous distribution of activity in the left ventricular myocardium, and are not significantly changed from the post stress images. The stress images were obtained using a gated SPECT technique, which permits visualization of wall motion and calculation of the left ventricular ejection fraction. No left ventricular wall motion abnormalities are noted on the stress study. The calculated left ventricular ejection fraction is 52% on the stress study. No previous study is available for comparison. IMPRESSION: Normal exercise stress and resting myocardial perfusion study with normal left ventricular wall motion and ejection fraction.
--- NOTE | 2017-10-11 17:47 | PN- Cardiology ---
Subjective Subjective: * No chest discomfort. * Normal troponins. * sinus rhythm Objective Vital Signs and I&Os Vital Signs Date Time Temp Pulse Resp B/P B/P Pulse O2 O2 Flow FiO2 Mean Ox Delivery Rate 10/11 1448 98.6 63 20 130/80 99 Room Air 10/11 0855 64 124/82 10/11 0705 97.7 60 18 118/80 98 Room Air 10/10 2219 97.8 48 18 150/78 98 Room Air Intake & Output 10/11 1600 10/11 0800 10/11 0000 10/10 1600 10/10 0800 10/10 0000 Intake Total 016 104 4630 0 Output Total 500 Balance 807 768 3315 -500 0 Intake, IV 50 224 Intake, Oral 769 77 8207 0 Number 1 0 Bowel Movements Output, Urine 500 Patient 237 lb 260 lb 230 lb Weight Weight Bed scale Reported by Patient Measurement Method Physical Exam: General: WD/WN male in NAD; alert and oriented x 3 HEENT: NC/AT, PERRL, EOMI Neck: no JVD, no carotid bruit Heart: RRR w/o murmur Lungs: clear bilaterally Abdomen: soft, NT, +ve bowel sounds Extremities: no edema Assessment/Plan Assessment/Plan * This patient has a very disconcerting family history of premature coronary artery disease in both his brother and father. This is in addition to hypertension. The chest discomfort that Mr. Adams described yesterday did sound reasonable for a cardiac pain in that it radiated toward his neck, was increased by exertion prior to relief by NTG. It was also accompanied by typical symptoms of increased sympathetic response. Fortunately, his stress test was negative for ischemia and he has a normal EF without regional wall motion abnormalities. I think it is reasonable to discharge this patient on aspirin 162mg daily, Plavix 75mg daily, a NTG patch at 0.2mg/hr for 12 hours daily and Verapamil as currently prescribed. He should follow up in the office in one week and if any recurrent chest pain I would have a low threshold for cardiac catheterization. Continue telemetry? No
[2017-10-11] MEDS ORDERED: DURLAZA162.5 MG PO ×2 (18:05→18:33)
[2017-10-11] MEDS ORDERED: NITROGLYCERIN1 EAC3 PAT ×2 (18:05→18:33)
--- NOTE | 2017-10-12 07:03 | Discharge Summary ---
Visit Information Visit Dates Admission Date: 10/10/17 Discharge Date: 10/11/17 Hospital Course Course Attending Physician: Suleiman Jimenez MD Primary Care Physician: Unknown Hospital Course: Mr Adams is a 52 YO male with HTN, previous chest pain (with normal stress test a yr ago)who presented with stabbing substernal chest pain with nausea, diaphoresis at rest. He had strong family history of CT in father, brother at younger age (<55yr). VS at presentation are significant for HR 50-60, BP 140/75mmHg, saturating on RA. Patient was admitted to the telemetry service and below is a problem list and summary of care received under us. Differentials Cardiac chest pain - Unstable angina vs ACS No history of GERD/recent viral infection Problem list 1. Chest pain - ischemic - rule out CT 2. HTN 3. Headache Chest Pain On 10/10/2017 patient received a cardiology consultation. Patient was treated for unstable angina and started on 325 mg of aspirin, 75 mg of Plavix and IV heparin. Patient was also started on nitroglycerin paste. Patient was given supplemental oxygen via nasal cannula. An echocardiogram was ordered results which have been attached to this report. Patient was ruled out with troponins EKG and he underwent a nuclear stress test on 10/11/2017. Following the stress test the patient was discharged on aspirin 162 mg, Plavix 75 mg daily and nitroglycerin patch to be worn for 12 hours daily. Dose of the nitroglycerin patch was 0.2 mg per hour. He was requested to continue his verapamil. Patient was instructed to follow-up with with the weave room supervisor in a week and have a low threshold for cardiac catheterization. Headache Appears patient has had a history of headaches which have been well controlled on verapamil. Over the course of the admission the patient's medication was continued. DVT prophylaxis the patient was maintained on subcutaneous heparin. Patient was a full code of the course of admission. Allergies: Coded Allergies: No Known Allergies (10/10/17) Pertinent Lab Results: SERVICE DATE: 10/10/17 EXAM TYPE: RAD - XRY-PORTABLE CHEST XRAY EXAMINATION: XR PORTABLE CHEST CLINICAL INFORMATION: Chest pain. COMPARISON: No relevant prior imaging. TECHNIQUE: Portable frontal view of the chest was obtained. FINDINGS: Lungs are clear and well expanded. No focal consolidative disease, pleural effusion, or pneumothorax. The cardiac silhouette and upper mediastinal contours are normal. No acute osseous finding. IMPRESSION: Unremarkable chest radiograph. No consolidative disease or effusion. DICTATED BY: Sunday Riggs MD SERVICE DATE: 10/10/17 EXAM TYPE: CARD - ECHOCARDIOGRAM JENNIE ADAMS Age: 52 : 1965 Gender: M Exam Date: 10/10/2017 10:08 Exam Location: ER Ht (in): 74 Wt (lb): 230 BSA: 2.35 BP: 122 / 75 Ordering Physician: Lizz Vasquez MD Referring Physician: Lizz Vasquez MD Technologist: Kamron Jeter [facility] Room Number: 7 Indications: LV FUNCTION AFTER ACS Rhythm: Sinus Technical Quality: good FINDINGS Left Ventricle Normal left ventricular size, wall thickness and systolic function with no obvious regional wall motion abnormalities. Normal left ventricular diastolic filling pattern for age. The ejection fraction is visually estimated at 60%. Right Ventricle The right ventricle is normal in size and function. Right Atrium The right atrium is normal in size. Left Atrium The left atrium is normal in size. The interatrial septum is intact. Mitral Valve The mitral valve is normal in structure and function. There is trace mitral regurgitation. Aortic Valve Structurally normal aortic valve without significant sclerosis or stenosis. There is no aortic regurgitation. Tricuspid Valve The tricuspid valve is normal in structure and function. There is no tricuspid regurgitation. Pulmonic Valve Structurally normal pulmonic valve. There is no pulmonic regurgitation. Pericardium Normal pericardium without effusion. No pleural effusion. Great Vessels Normal aortic root dimension. The aortic arch and great vessels are well seen and are normal. CONCLUSIONS 1. Normal EF of 60%. 2. Trace mitral regurgitation. Wood Wiggins M.D. (Electronically Signed) Final Date: 10 October 2017 11:29 MEASUREMENTS (Male / Female) Normal Values 2D ECHO LV Diastolic Diameter PLAX 5.6 cm 4.2 - 5.9 / 3.9 - 5.3 cm LV Systolic Diameter PLAX 3.1 cm 2.1 - 4.0 cm LV Fractional Shortening PLAX 44.6 % 25 - 46 % LV Ejection Fraction 2D Teich 75.3 % IVS Diastolic Thickness 0.8 cm LVPW Diastolic Thickness 0.9 cm LV Relative Wall Thickness 0.3 RV Internal Dim ED PLAX 2.9 cm 1.9 - 3.8 cm LVOT Diameter 2.1 cm Aortic Root Diameter 3.1 cm LA Systolic Diameter LX 3.2 cm 3.0 - 4.0 / 2.7 - 3.8 cm LA Volume 51.0 cm 18 - 58 / 22 - 52 cm Ascending Aorta Diameter 3.2 cm DOPPLER AV Peak Velocity 121.0 cm/s AV Peak Gradient 5.9 mmHg AV Mean Velocity 88.6 cm/s AV Mean Gradient 3.0 mmHg AV Velocity Time Integral 31.8 cm LVOT Peak Velocity 91.0 cm/s LVOT Peak Gradient 3.3 mmHg LVOT Mean Velocity 53.8 cm/s LVOT Mean Gradient 1.0 mmHg LVOT Velocity Time Integral 19.5 cm LVOT Stroke Volume 67.5 cm AV Area Cont Eq vti 2.1 cm AV Area Cont Eq pk 2.6 cm MV Peak Velocity 88.2 cm/s MV Peak Gradient 3.1 mmHg MV Mean Velocity 40.5 cm/s MV Mean Gradient 1.0 mmHg Mitral E Point Velocity 71.1 cm/s Mitral A Point Velocity 37.5 cm/s Mitral E to A Ratio 1.9 MV PHT Velocity 102.0 cm/s MV Deceleration [place] 444.0 cm/s MV Pressure Half Time 68.9 ms MV Area PHT 3.2 cm MV Deceleration Time 232.0 ms PV Peak Velocity 91.0 cm/s PV Peak Gradient 3.3 mmHg PV Mean Velocity 62.7 cm/s PV Mean Gradient 2.0 mmHg PV Velocity Time Integral 23.6 cm LV E' Lateral Velocity 13.7 cm/s Mitral E to LV E' Lateral Ratio 5.2 LV E' Septal Velocity 10.6 cm/s Mitral E to LV E' Septal Ratio 6.7 DICTATED BY: Rosalie BASS PHD,Wood Hallman DATE/TIME DICTATED:10/10/179 SERVICE DATE: 10/11/17 EXAM TYPE: NUC - MYOCARDIAL PERFUSION IMAGING EXERCISE STRESS AND RESTING SPECT MYOCARDIAL PERFUSION IMAGING STUDY WITH GATED SPECT IMAGES: CLINICAL INDICATION: Atypical chest pain. PROCEDURE: Regional myocardial perfusion was assessed using a 1 day protocol. Stress images were obtained on 10/11/2017 following the intravenous administration of 26.5 mCi Tc 99m Myoview. Stress was performed using the standard Chay protocol, with the patient reaching a peak heart rate of 88% maximal predicted heart rate. Rest images were obtained 10/11/2017 following the intravenous administration of 41.4 mCi Technetium 99m Myoview. Single photon emission tomographic (SPECT) images were obtained. SPECT images were acquired in a 64 x 64 matrix of 64 projections over 180 degrees. These were reconstructed into standard short axis, horizontal and vertical long axis cardiac projections. FINDINGS: The post stress images demonstrate the left ventricular chamber to be normal in size. There is homogeneous distribution of activity in the left ventricular myocardium with no regions of abnormally decreased activity noted. The resting images also demonstrate homogeneous distribution of activity in the left ventricular myocardium, and are not significantly changed from the post stress images. The stress images were obtained using a gated SPECT technique, which permits visualization of wall motion and calculation of the left ventricular ejection fraction. No left ventricular wall motion abnormalities are noted on the stress study. The calculated left ventricular ejection fraction is 52% on the stress study. No previous study is available for comparison. IMPRESSION: Normal exercise stress and resting myocardial perfusion study with normal left ventricular wall motion and ejection fraction. DICTATED BY: Rolando Tidwell MD Disposition Summary Disposition Principal Diagnosis: 1. Chest pain - likely unstable angina Additional Diagnosis: 2. HTN 3. Headache Discharge Disposition: home or self care Discharge Instructions General Discharge Information Code Status: Full Code Patient's Diet: Heart Healthy Patient's Activity: As Tolerated Follow-Up Instructions/Appts: Please follow up with the PCP within 7 days we have provided you with a referral. Follow up with the weave room supervisor within 1 week with provided you referral. Medications at Discharge Discharge Medications: Stop taking the following medications: Aspirin (Ecotrin*) 81 MG TABLET.DR ORAL DAILY Continue taking these medications: Verapamil HCl (Verapamil ER) 180 MG TABLET.ER 1 Tablet ORAL DAILY Qty = 30 Comments: Last Taken: 10/11/17 Time: 9:00 AM Cholecalciferol (Vitamin D3) 1,000 UNIT TABLET 1 Tablet ORAL DAILY Comments: Last Taken: 10/11/17 Time: 9:00 AM Start taking the following new medications: Aspirin (Durlaza) 162.5 MG CAP.ER.24H 1 Capsule ORAL DAILY Qty = 30 No Refills Instructions: . Comments: NOT GIVEN Nitroglycerin (Nitroglycerin Patch) 0.2 MG/HOUR PATCH.TD24 1 PATCH PATCH EVERY 12 HOURS Qty = 30 No Refills Instructions: .please use the patch for 12 hours and then remove it daily. Comments: NOT GIVEN Atorvastatin Calcium (Atorvastatin Calcium) 40 MG TABLET 40 Milligram ORAL 5 PM Qty = 30 No Refills Instructions: . Comments: Last Taken: 10/11/17 Time: 4:30 PM Clopidogrel Bisulfate (Plavix) 75 MG TABLET 75 Milligram ORAL DAILY Qty = 30 No Refills Instructions: . Comments: Last Taken: 10/11/17 Time: 9:00 AM Copies To: Per BASS,Maria Ines Wiggins MD PHD,Wood Balbuena MD Review Statement Documenting Attending: Suleiman Jimenez MD Other Findings: Patient admitted here with typical chest pain symptoms, stress test negative. Cardiology consulted and recommend aspirin, plavix , nitro-patch and verapamil. Needs to follow up with cardiology in 1 week of discharge.
== END 2017-10-11 19:35 | DRG 311 ==
LOC: ERH 06:49 → ERHI 08:34 → 1NO 08:34 → EDBEDREQ 09:42 → ENRESERV 09:45 → ENTRNSPT 11:57 → EDTRNSPT 12:29 → EDTRNSPTSTS 12:29 → 1NO 12:36 → CMPTRNSPT 12:48 → 1NO 10-11 19:35
PROVIDERS: Internal Medicine; Internal Medicine Interventional Cardiology; Pediatrics
DX: I20.0 Unstable angina (principal); I10 Essential (primary) hypertension; R61 Generalized hyperhidrosis; Z82.49 Family history of ischemic heart disease and other diseases of the circulatory system
CPT/HCPCS: 1NP; 36415; 36592; 71045; 78452; 81003; 82436; 93005; 93010; 93016; 93017; 93306; A9502; J1644; J3490